=== PATIENT | male | born 1965 | race Caucasian/White ===

== ENCOUNTER 2020-05-17 16:11 | Emergency (ER) | payer OTHER | END 2020-05-17 21:15 | disposition home or self-care (01) | LOC: ER1 16:11 | DX: S13.9XXA Sprain of joints and ligaments of unspecified parts of neck, initial encounter (principal); S40.011A Contusion of right shoulder, initial encounter; S50.01XA Contusion of right elbow, initial encounter; E11.9 Type 2 diabetes mellitus without complications; I10 Essential (primary) hypertension; Z79.899 Other long term (current) drug therapy; W23.0XXA Caught, crushed, jammed, or pinched between moving objects, initial encounter | CPT/HCPCS: 71045; 72125; 73030; 73080; 99284 ==